=== PATIENT | female | born 1935 | race Caucasian/White ===

== ENCOUNTER 2017-12-17 13:04 | Inpatient (IN) | payer MEDICARE, OTHER ==
[~2017-12-17] VITALS: Ht 152.4 cm; Wt 49.9 kg
[~2017-12-17 13:04] MED LIST: BUDE180A INH; CETI-102 PO; CLON1TAB PO
--- NOTE | 2017-12-17 13:06 | NUR ---
[id number], [id number] FROM HOME FOR UNWITNESSED SYNCOPE. HYPOTENSIVE IN THE FIELD 60/40 IV FLUIDS INITIATED BY EMS. BS-152. RR IS EVEN AND UNLABORED WITH NAD NOTED. SKIN IS WARM AND DRY. AWAITING MD FOR EVAL.
[2017-12-17] MEDS ORDERED: TRAM50TA PO (13:12)
[2017-12-17] MEDS ORDERED: CLON0.5T PO (13:12)
[2017-12-17] MEDS ORDERED: ONDA4TAB5 PO (13:12)
[2017-12-17] MEDS ORDERED: POLY17PO4 PO (13:12)
[2017-12-17] MEDS ORDERED: LEVO5TAB29 PO (13:12)
[2017-12-17] MEDS ORDERED: FLUT100B3 IH (13:12)
[2017-12-17 13:23] LABS: BASOPHILS % (AUTO) 0.7 % (0.0-2.0); EOSINOPHILS % (AUTO) 0.4 % (0.0-6.0); HEMATOCRIT 38 % (33-45); LYMPHOCYTES # (AUTO) 1.6 /CMM (0.8-4.8); LYMPHOCYTES % (AUTO) 24.7 % (20.0-44.0); MEAN CORPUSCULAR HGB CONC 35 g/dl (31.0-36.0); MEAN CORPUSCULAR VOLUME 88 fL (82-100); MONOCYTES # (AUTO) 0.6 /CMM (0.1-1.30); MONOCYTES % (AUTO) 8.9 % (2.0-12.0); NEUTROPHILS # (AUTO) 4.3 /CMM (1.8-8.9); NEUTROPHILS % (AUTO) 65.3 % (43.0-81.0); PLATELET COUNT (AUTO) 232 /CMM (150-450); RDW COEFFICIENT OF VARIATION 13.3 (11.5-15.0); RED BLOOD CELL COUNT(AUTO) 4.31 MIL/uL (4.0-5.2); WHITE BLOOD COUNT (AUTO) 6.5 K/uL (4.3-11.0)
--- NOTE | 2017-12-17 13:29 | NUR ---
CALLED [employer] DICTAPHONE TRANSCRIBER WAS PAGED.
[2017-12-17] MEDS ORDERED: IV NS 0.9% 1,000 ML BAG IV ONE (13:30)
[2017-12-17] MEDS ORDERED: ONDANSETRON HCL/PF 4 MG/2 ML VIAL ONE (13:30)
[2017-12-17] MEDS ORDERED: ONDANSETRON HCL/PF 4 MG/2 ML VIAL IVP ONE (13:30)
[2017-12-17 13:37] LABS: CALCIUM, SERUM 9.3 mg/dL (8.5-10.1); CARBON DIOXIDE 28 mmol/L (21-32); CHLORIDE 101 mmol/L (98-107); CREATININE 0.9 mg/dL (0.6-1.3); GLUCOSE 158 mg/dL (74-106); INR 0.97 (0.85-1.15); POTASSIUM 3.7 mmol/L (3.5-5.1); SODIUM SERUM 135 mmol/L (136-145); UREA NITROGEN, BLOOD 16 mg/dL (7-18)
[2017-12-17 13:41] LABS: TROPONIN I 0.045 ng/mL (0.00-0.056)
[2017-12-17 13:43] LABS: ALANINE AMINOTRANSFERASE 23 U/L (12-78); ALBUMIN 3.6 g/dL (3.4-5.0); ALKALINE PHOSPHATASE 53 U/L (46-116); ASPARTATE AMINOTRANSFERASE 16 U/L (15-37); BILIRUBIN,DIRECT 0.1 mg/dL (0.0-0.2); BILIRUBIN,TOTAL 0.4 mg/dL (0.2-1.0); TOTAL PROTEIN, SERUM 6.3 g/dL (6.4-8.2)
--- NOTE | 2017-12-17 15:18 | NUR ---
REPORT GIVEN TO YISEL ARMENTA FOR YUN TEL [id number]
[2017-12-17 16:00] VITALS: BP 117/62
--- NOTE | 2017-12-17 16:00 | NUR ---
FIRST ASSISTANT NOTES PATIENT ARRIVED ON UNIT VIA GURNEY. ALERT, ORIENTED X3 NO SOB OR ACUTE DISTRESS NOTED. PATIENT DENIES ANY PAIN OR DISCOMFORT. PATIENT ORIENTED TO ROOM AND UNIT. PATIENT IS DEAF. ABLE TO READ LIPS. PERIPHERAL IV INTACT PATENT ON LEFT AC. WILL CONTINUE TO MONITOR.
--- NOTE | 2017-12-17 16:30 | NUR ---
HOSE SPRAYER NOTES PATIENT SEEN AND EVALUATED BY DR. TAVARES ORDERS NOTED AND CARRIED OUT.
[2017-12-17] MEDS ORDERED: IV NS 0.9% 1,000 ML IV PRN (16:44)
[2017-12-17] MEDS: POLYETHYLENE GLYCOL 3350 17 GM POWD.PACK PO SCH (17:00)
[2017-12-17] MEDS ORDERED: TRAMADOL HCL 50 MG TABLET PO SCH (17:00)
[2017-12-17] MEDS ORDERED: HYDROCODONE/APAP 5/325MG 1 EACH TABLET PO PRN (17:00)
[2017-12-17] MEDS ORDERED: FLUTICASONE FUROATE 100 MCG IH SCH (17:00)
[2017-12-17] MEDS ORDERED: Medication Not On Formulary EA (Levocetirizine Dihydrochloride (Xyzal) 5 MG) PO SCH (17:00)
[2017-12-17] MEDS ORDERED: Z GUARD REMEDY 2 OZ OINT TP PRN (17:00)
[2017-12-17] MEDS ORDERED: ONDANSETRON HCL/PF 4 MG/2 ML VIAL IVP PRN (17:00)
[2017-12-17] MEDS ORDERED: MAG HYDROX/AL HYDROX/SIMETH 30 ML UDC PO PRN (17:00)
[2017-12-17] MEDS: clonazePAM 0.5 MG TABLET PO SCH (17:00)
[2017-12-17] MEDS ORDERED: ACETAMINOPHEN 325 MG TABLET PO PRN (17:00)
[2017-12-17] MEDS ORDERED: MAGNESIUM HYDROXIDE 30 ML UDC PO PRN (17:00)
[2017-12-17] MEDS ORDERED: ZOLPIDEM TARTRATE 5 MG TABLET PO PRN (17:00)
[2017-12-17 20:08] VITALS: BP 110/57
--- NOTE | 2017-12-17 20:09 | NUR ---
IT SECURITY ARCHITECT NOTES PATIENT IN BED RESTING NO SOB OR ACUTE DISTRESS NOTED. ALL DUE MEDICATIONS ADMINISTERED. ALL NEEDS MET. WILL ENDORSE TO PM SHIFT YUN.
--- NOTE | 2017-12-17 22:08 | NUR ---
TELE/RN RECEIVED PATIENT AT 1930. PATIENT WAS AWAKE, ALERT, ORIENTED, COMFORTABLE, NO C/O PAIN, NO DISTRESS NOTED, CALL LIGHT IN REACH. PATIENT IS DEAF, NO HEARING AIDS, BUT ABLE TO READ LIPS. WILL MONITOR.
--- NOTE | 2017-12-18 01:35 | NUR ---
TELE/RN PATIENT IS SLEEPING AT THIS TIME, EASILY AROUSABLE, APPEAR COMFORTABLE, NO SIGNS OF DISTRESS NOTED, CALL LIGHT IN REACH. WILL CONTINUE TO MONITOR.
[2017-12-18 01:43] VITALS: BP 150/71
[2017-12-18 01:44] VITALS: BP 150/71
--- NOTE | 2017-12-18 01:59 | NUR ---
TELE/RN IV MACHINE CONSTANTLY BEEPING DUE TO IV SITE AT LEFT AC AND PATIENT IS UNABLE TO KEEP ARM STRAIGHT, OFFERED PATIENT TO CHANGE IV SITE BUT REFUSED. IV MACHINE TURNED OFF IT DISTURBS ROOM MATE WHO WANTS TO SLEEP.
[2017-12-18 02:53] LABS: APPEARANCE,URINE CLEAR (CLEAR); BILIRUBIN,URINE NEGATIVE (NEGATIVE); BLOOD, URINE NEGATIVE Ery/uL (NEGATIVE); COLOR,URINE YELLOW (YELLOW); KETONES,URINE NEGATIVE (NEGATIVE); LEUKOCYTE ESTERASE ,URINE 1+ (NEGATIVE); NITRITE, URINE NEGATIVE (NEGATIVE); PH,URINE 6.5 (5.0-8.0); PROTEIN,URINE NEGATIVE (NEGATIVE); UGLUCOSE NEGATIVE (NEGATIVE); UROBILINOGEN,URINE 0.2 EU/dL (0.2)
[2017-12-18 03:38] LABS: BACTERIA,URINE Many /HPF (None Seen); SQUAMOUS EPITHELIAL CELL,UR Few /HPF (None Seen)
[2017-12-18 04:37] VITALS: BP 136/66
--- NOTE | 2017-12-18 06:15 | NUR ---
TELE/RN PATIENT IS STILL SLEEPING AT THIS TIME, APPEAR COMFORTABLE, BREATHING EVEN AND UNLABORED, ALL NEEDS ATTENDED AT THIS TIME. WILL CONTINUE TO MONITOR.
[2017-12-18 07:23] LABS: BASOPHILS % (AUTO) 0.5 % (0.0-2.0); EOSINOPHILS % (AUTO) 0.9 % (0.0-6.0); HEMATOCRIT 36 % (33-45); HEMOGLOBIN 12.3 g/dL (11.5-14.8); LYMPHOCYTES # (AUTO) 1.3 /CMM (0.8-4.8); LYMPHOCYTES % (AUTO) 23.9 % (20.0-44.0); MEAN CORPUSCULAR HGB CONC 35 g/dl (31.0-36.0); MEAN CORPUSCULAR VOLUME 90 fL (82-100); MONOCYTES # (AUTO) 0.5 /CMM (0.1-1.30); MONOCYTES % (AUTO) 8.7 % (2.0-12.0); NEUTROPHILS # (AUTO) 3.5 /CMM (1.8-8.9); PLATELET COUNT (AUTO) 174 /CMM (150-450); RDW COEFFICIENT OF VARIATION 14.4 (11.5-15.0); RED BLOOD CELL COUNT(AUTO) 3.96 MIL/uL (4.0-5.2); WHITE BLOOD COUNT (AUTO) 5.3 K/uL (4.3-11.0)
--- NOTE | 2017-12-18 07:30 | NUR ---
RN OPENING NOTES RECEIVED PATIENT IN BED RESTING. NO ACUTE DISTRESS, NO SOB. DENIED PAIN OR DISCOMFORT. IV SITE INTACT AND PATENT. KEPT PATIENT SAFE AND COMFORTABLE. BED IN LOW/LOCKED POSITION, SIDERAILS UP X2, CALL LIGHT IN REACH. WILL CONTINUE TO MONITOR ACCORDINGLY.
[2017-12-18 07:42] LABS: ALANINE AMINOTRANSFERASE 25 U/L (12-78); ALBUMIN 3.4 g/dL (3.4-5.0); ALKALINE PHOSPHATASE 55 U/L (46-116); ASPARTATE AMINOTRANSFERASE 18 U/L (15-37); BILIRUBIN,TOTAL 0.4 mg/dL (0.2-1.0); CALCIUM, SERUM 8.5 mg/dL (8.5-10.1); CARBON DIOXIDE 26 mmol/L (21-32); CHLORIDE 104 mmol/L (98-107); CREATININE 0.6 mg/dL (0.6-1.3); GLUCOSE 83 mg/dL (74-106); MAGNESIUM 1.8 mg/dL (1.8-2.4); PHOSPHORUS 3.5 mg/dL (2.5-4.9); POTASSIUM 3.7 mmol/L (3.5-5.1); SODIUM SERUM 137 mmol/L (136-145); TOTAL PROTEIN, SERUM 5.9 g/dL (6.4-8.2); UREA NITROGEN, BLOOD 15 mg/dL (7-18)
[2017-12-18 07:47] LABS: CHOLESTEROL 165 mg/dL (<200); HDL CHOLESTEROL 82 mg/dL (40-60); LDL 76 mg/dL (0-99); TRIGLYCERIDES 33 mg/dL (30-150)
[2017-12-18 08:00] VITALS: BP 135/78
[2017-12-18] MEDS: POLYETHYLENE GLYCOL 3350 17 GM POWD.PACK PO SCH (08:23)
[2017-12-18] MEDS: clonazePAM 0.5 MG TABLET PO SCH (08:23)
[2017-12-18 10:00] VITALS: BP_SYST 135; BP_SYST 143; BP_SYST 144; BP_DIAS 76; BP_DIAS 77; BP_DIAS 97
--- NOTE | 2017-12-18 10:00 | NUR ---
ORTHOSTATIC BP SUPINE: 143/76 SITTIN/97 STANDIN/77
[2017-12-18] MEDS: ONDANSETRON 4 MG TAB.RAPDIS PO PRN ×2 (11:17→16:40)
--- NOTE | 2017-12-18 14:15 | NUR ---
RN NOTES DR TAVARES AT BEDSIDE TALKING TO PATIENT AND . PATIENT WILL BE DISCHARGE TODAY.
--- NOTE | 2017-12-18 17:01 | NUR ---
PALEOLOGY PROFESSOR NOTES DISCHARGED PATIENT IN STABLE CONDITION PICKED UP BY , ACCOMPANIED BY PRIMARY NURSE AT THE LOBBY. DISCHARGE INSTRUCTIONS GIVEN, VERBALIZED UNDERSTANDING. DISCHARGE PAPERWORK AND PRESCRIPTION GIVEN TO . REMOVED IV, APPLIED PRESSURE, NO BLEEDING, NO COMPLICATIONS. REMOVED NAME BAND.
== END 2017-12-18 17:55 | disposition home or self-care (01) | DRG 74 ==
LOC: ER 13:05 → TELE 15:09
PROVIDERS: ADMIT Internal Medicine; ATTEND Internal Medicine
DX: G90.8 Other disorders of autonomic nervous system (principal); N39.0 Urinary tract infection, site not specified; E87.1 Hypo-osmolality and hyponatremia; H91.90 Unspecified hearing loss, unspecified ear; Z85.3 Personal history of malignant neoplasm of breast; Z90.12 Acquired absence of left breast and nipple; Z95.0 Presence of cardiac pacemaker; I10 Essential (primary) hypertension; R79.89 Other specified abnormal findings of blood chemistry
CPT/HCPCS: 36415; 70450-TC; 71045-TC; 80048-TC; 80053-TC; 80061-TC; 80076-TC; 81000-TC; 83735-TC; 84100-TC; 84484-TC; 85025-TC; 85730-TC; 87081-TC; 87086-TC; 87186-TC; 93307-TC; 93880-TC; A4606; J2405; J7030; Q0162; Z7610

== ENCOUNTER 2024-11-25 07:35 | Inpatient (IN) | payer MEDICARE ==
[~2024-11-25] VITALS: Ht 152.4 cm; Wt 40.8 kg
[2024-11-25 04:00] VITALS: BP 93/51; TEMP 97.9; O2SAT 98
[~2024-11-25 07:35] MED LIST changes: -BUDE180A INH; -CETI-102 PO; +CLON0.5T PO; -CLON1TAB PO; +FLUT100B3 IH; +LEVO5TAB29 PO; +ONDA4TAB5 PO; +POLY17PO4 PO; +TRAM50TA PO
[2024-11-25 07:56] LABS: BASOPHILS % (AUTO) 0.2 % (0.0-2.0); EOSINOPHILS % (AUTO) 0.7 % (0.0-6.0); HEMATOCRIT 34 % (33-45); HEMOGLOBIN 11.8 g/dL (11.5-14.8); LYMPHOCYTES # (AUTO) 0.7 K/uL (0.8-4.8); LYMPHOCYTES % (AUTO) 15.9 % (20.0-44.0); MEAN CORPUSCULAR HEMOGLOBIN 30 PG (26.0-33.0); MEAN CORPUSCULAR HGB CONC 35 g/dl (31.0-36.0); MEAN CORPUSCULAR VOLUME 85 fL (82-100); MONOCYTES # (AUTO) 0.3 K/uL (0.1-1.30); MONOCYTES % (AUTO) 7.2 % (2.0-12.0); NEUTROPHILS # (AUTO) 3.5 K/uL (1.8-8.9); PLATELET COUNT (AUTO) 168 K/uL (150-450); RED BLOOD CELL COUNT(AUTO) 3.98 MIL/uL (4.0-5.2); RED CELL DISTRIBUTION WIDTH 14.9 % (11.5-15.0); WHITE BLOOD COUNT (AUTO) 4.6 K/uL (4.3-11.0)
[2024-11-25] MEDS: IV NS 0.9% 500 ML BAG IV ONE (08:01)
[2024-11-25 08:19] LABS: ALANINE AMINOTRANSFERASE 25 U/L (12-78); ALBUMIN 4.3 g/dL (3.4-5.0); ALKALINE PHOSPHATASE 80 U/L (46-116); ASPARTATE AMINOTRANSFERASE 23 U/L (15-37); BILIRUBIN,DIRECT 0.2 mg/dL (0.0-0.2); BILIRUBIN,TOTAL 0.5 mg/dL (0.2-1.0); CALCIUM, SERUM 9.1 mg/dL (8.5-10.1); CARBON DIOXIDE 27 mmol/L (21-32); CHLORIDE 84 mmol/L (98-107); CREATININE 0.9 mg/dL (0.6-1.3); GLUCOSE 116 mg/dL (74-106); POTASSIUM 4.5 mmol/L (3.5-5.1); TOTAL PROTEIN, SERUM 7.3 g/dL (6.4-8.2); UREA NITROGEN, BLOOD 23 mg/dL (7-18)
[2024-11-25 08:21] LABS: LACTIC ACID 0.6 mmol/L (0.4-2.0)
[2024-11-25 08:26] LABS: SODIUM SERUM 117 mmol/L (136-145)
[2024-11-25] MEDS ORDERED: AMLO2.5T4 PO (09:14)
[2024-11-25] MEDS ORDERED: CLON2TAB11 PO (09:14)
[2024-11-25] MEDS ORDERED: ACET-73 PO (09:14)
[2024-11-25] MEDS ORDERED: BACL10TA PO (09:14)
[2024-11-25] MEDS ORDERED: SILO8CAP6 PO (09:14)
[2024-11-25] MEDS ORDERED: PROP15DR EACHEYE (09:14)
[2024-11-25] MEDS ORDERED: SPIR1TAB4 PO (09:14)
[2024-11-25] MEDS ORDERED: MTH/1CAP7 PO (09:14)
[2024-11-25] MEDS ORDERED: LISI40TA13 PO (09:14)
[2024-11-25] MEDS ORDERED: Z GUARD REMEDY 4 OZ OINT TP PRN (10:00)
[2024-11-25] MEDS ORDERED: ONDANSETRON HCL/PF 4 MG/2 ML VIAL IVP PRN (10:00)
[2024-11-25] MEDS ORDERED: ACETAMINOPHEN 325 MG TABLET PO PRN (10:00)
[2024-11-25] MEDS ORDERED: MAGNESIUM HYDROXIDE 30 ML UDC PO PRN (10:00)
[2024-11-25] MEDS ORDERED: BACLOFEN (10 MG) 10 MG TABLET PO PRN (10:00)
[2024-11-25] MEDS ORDERED: MAG HYDROX/AL HYDROX/SIMETH 30 ML UDC PO PRN (10:00)
[2024-11-25] MEDS ORDERED: URIBEL XX SCH (10:00)
[2024-11-25 10:12] LABS: APPEARANCE,URINE CLEAR (CLEAR); BILIRUBIN,URINE NEGATIVE (NEGATIVE); BLOOD, URINE NEGATIVE Ery/uL (NEGATIVE); COLOR,URINE YELLOW (YELLOW); PROTEIN,URINE NEGATIVE (NEGATIVE); UGLUCOSE NEGATIVE (NEGATIVE)
[2024-11-25 10:13] LABS: KETONES,URINE NEGATIVE (NEGATIVE); LEUKOCYTE ESTERASE ,URINE NEGATIVE (NEGATIVE); NITRITE, URINE NEGATIVE (NEGATIVE); UROBILINOGEN,URINE 0.2 EU/dL (0.2)
[2024-11-25] MEDS: ASPIRIN 81 MG TAB.CHEW PO SCH (10:30)
[2024-11-25] MEDS: IV NS 0.9% 1,000 ML IV PRN (11:50)
[2024-11-25] MEDS: CEFTRIAXONE 1 G in IV D5W 50 ML IV SCH (11:50)
[2024-11-25 15:22] LABS: CALCIUM, SERUM 9.1 mg/dL (8.5-10.1); CREATININE 0.7 mg/dL (0.6-1.3); MAGNESIUM 2.1 mg/dL (1.8-2.4); POTASSIUM 4.7 mmol/L (3.5-5.1)
[2024-11-25 15:55] LABS: THYROID STIMULATING HORMONE 1.79 uIU/mL (0.358-3.74)
[2024-11-25 16:00] VITALS: BP 120/61; TEMP 98.2; O2SAT 98
[2024-11-25 20:00] VITALS: BP 125/64; TEMP 98; O2SAT 97
[2024-11-25] MEDS: clonazePAM 1 MG TABLET PO SCH (22:52)
[2024-11-25] MEDS: TRAMADOL HCL 50 MG TABLET PO SCH (22:55)
[2024-11-26] MEDS: BUDESONIDE RESPULE INH 0.5 MG/2 ML AMPUL.NEB HHN SCH (07:05)
[2024-11-26 07:22] LABS: BASOPHILS % (AUTO) 0.2 % (0.0-2.0); EOSINOPHILS # (AUTO) 0.1 K/uL (0.0-0.7); HEMATOCRIT 34 % (33-45); HEMOGLOBIN 11.6 g/dL (11.5-14.8); LYMPHOCYTES # (AUTO) 0.8 K/uL (0.8-4.8); MEAN CORPUSCULAR HEMOGLOBIN 30 PG (26.0-33.0); MEAN CORPUSCULAR HGB CONC 35 g/dl (31.0-36.0); MEAN CORPUSCULAR VOLUME 87 fL (82-100); MONOCYTES # (AUTO) 0.5 K/uL (0.1-1.30); MONOCYTES % (AUTO) 7.1 % (2.0-12.0); NEUTROPHILS # (AUTO) 5.5 K/uL (1.8-8.9); NEUTROPHILS % (AUTO) 79.7 % (43.0-81.0); PLATELET COUNT (AUTO) 172 K/uL (150-450); RED BLOOD CELL COUNT(AUTO) 3.85 MIL/uL (4.0-5.2); RED CELL DISTRIBUTION WIDTH 14.9 % (11.5-15.0); WHITE BLOOD COUNT (AUTO) 6.9 K/uL (4.3-11.0)
[2024-11-26 07:30] VITALS: BP 101/52; TEMP 98.2; O2SAT 100
[2024-11-26 07:52] VITALS: BP 101/52; TEMP 98.2; O2SAT 100
[2024-11-26 08:17] LABS: CALCIUM, SERUM 8.6 mg/dL (8.5-10.1); CREATININE 0.7 mg/dL (0.6-1.3); MAGNESIUM 2.3 mg/dL (1.8-2.4); PHOSPHORUS 3.9 mg/dL (2.5-4.9); POTASSIUM 4.5 mmol/L (3.5-5.1)
[2024-11-26] MEDS: AMLODIPINE BESYLATE 2.5 MG TABLET PO SCH (09:00)
[2024-11-26] MEDS: POLYVINYL ALCOHOL 15 ML BOTTLE OP SCH (09:00)
[2024-11-26] MEDS: PANTOPRAZOLE 40 MG TABLET.DR PO SCH (09:28)
[2024-11-26 10:07] LABS: FOLIC ACID > 20.0 ng/mL (>3.0)
[2024-11-26] MEDS ORDERED: BACLOFEN 10 MG PO PRN (10:30)
[2024-11-26 12:00] VITALS: BP 107/59; TEMP 97.9; O2SAT 97
[2024-11-26] MEDS: FLUTICASONE FUROATE 100 MCG PO SCH (13:05)
[2024-11-26] MEDS ORDERED: HOME MED MISCELLANEOUS PO SCH (13:30)
[2024-11-26] MEDS: TYLENOL 500 MG PO SCH (14:01)
[2024-11-26] MEDS: KEY,NONCONTROL,TO KEEP IN PYXI 1 EA MC ONE ×2 (14:08→21:10)
[2024-11-26 16:00] VITALS: BP 124/56; TEMP 97.5; O2SAT 100
[2024-11-26] MEDS: HOME MED MISCELLANEOUS (SILODOSIN 8MG CAP) PO SCH (17:40)
[2024-11-26] MEDS: ONDANSETRON 4 MG PO PRN (17:42)
[2024-11-26 20:00] VITALS: BP 110/59; TEMP 97.3; O2SAT 96
[2024-11-26] MEDS: TRAMADOL 50 MG PO SCH (21:13)
[2024-11-26] MEDS: CLONAZEPAM 1 MG PO SCH (21:14)
[2024-11-27 04:00] VITALS: BP 110/61; TEMP 97.7; O2SAT 95
[2024-11-27 06:36] LABS: CALCIUM, SERUM 7.6 mg/dL (8.5-10.1); CREATININE 0.5 mg/dL (0.6-1.3); POTASSIUM 4.2 mmol/L (3.5-5.1)
[2024-11-27 08:00] VITALS: BP 128/63; TEMP 97.3; O2SAT 99
[2024-11-27 12:00] VITALS: BP 122/61; TEMP 98.2; O2SAT 97
[2024-11-27] MEDS: KEY,NONCONTROL,TO KEEP IN PYXI 1 EA MC ONE (12:54)
[2024-11-29 07:06] LABS: METHYLMALONIC ACID 158 nmol/L (0-378)
[2024-12-01 04:07] LABS: VITAMIN B1 THIAMINE,WB 99.2 nmol/L (66.5-200.0)
== END 2024-11-27 17:11 | disposition home health service (06) | DRG 640 ==
LOC: ER 07:39 → MED 09:11 → TELE 10:16
PROVIDERS: ADMIT Nurse Practitioner Acute Care; ATTEND Nurse Practitioner Acute Care
DX: E87.1 Hypo-osmolality and hyponatremia (principal); I21.A1 Myocardial infarction type 2; N39.0 Urinary tract infection, site not specified; E86.0 Dehydration; F41.9 Anxiety disorder, unspecified; I10 Essential (primary) hypertension; Z90.12 Acquired absence of left breast and nipple; Z95.0 Presence of cardiac pacemaker; Z87.440 Personal history of urinary (tract) infections; R53.1 Weakness; H91.13 Presbycusis, bilateral; T50.2X5A Adverse effect of carbonic-anhydrase inhibitors, benzothiadiazides and other diuretics, initial encounter; Y92.009 Unspecified place in unspecified non-institutional (private) residence as the place of occurrence of the external cause; B96.89 Other specified bacterial agents as the cause of diseases classified elsewhere; Z85.3 Personal history of malignant neoplasm of breast
CPT/HCPCS: 36415; 70450-TC; 71045-TC; 80048-TC; 80061-TC; 80076-TC; 82533; 82607-TC; 82962-TC; 83605-TC; 83735-TC; 83921; 83935-TC; 84100-TC; 84300-TC; 84425; 84443-TC; 84484-TC; 84550-TC; 85025-TC; 87040-TC; 93307-TC; 97110-TC; 97116-TC; 97530-TC; 97535-TC; A4223; G0378; J0696; J7030; J7040; J7060

== ENCOUNTER 2024-12-02 12:29 | Emergency (ER) | payer MEDICARE ==
[~2024-12-02] VITALS: Ht 144.8 cm; Wt 42.6 kg
[~2024-12-02 12:29] MED LIST changes: +ACET-73 PO; +AMLO2.5T4 PO; +BACL10TA PO; +CLON2TAB11 PO; +LISI40TA13 PO; +MTH/1CAP7 PO; +PROP15DR EACHEYE; +SILO8CAP6 PO; +SPIR1TAB4 PO
[2024-12-02 12:45] VITALS: BP 114/56; TEMP 98.1; O2SAT 97
[2024-12-02] MEDS ORDERED: AZIT250T13 PO (13:19)
[2024-12-02] MEDS ORDERED: CARB15DR12 RIGHT EAR (13:19)
[2024-12-02] MEDS ORDERED: NEOM10DR11 EACH EAR (13:19)
== END 2024-12-02 13:28 | disposition home or self-care (01) ==
LOC: ER 12:31
DX: H61.21 Impacted cerumen, right ear (principal); H66.92 Otitis media, unspecified, left ear; I10 Essential (primary) hypertension; J42 Unspecified chronic bronchitis; Z79.899 Other long term (current) drug therapy; Z85.3 Personal history of malignant neoplasm of breast; Z88.0 Allergy status to penicillin; Z88.1 Allergy status to other antibiotic agents; Z88.5 Allergy status to narcotic agent

== ENCOUNTER 2024-12-15 21:22 | Emergency (ER) | payer MEDICARE ==
[~2024-12-15] VITALS: Ht 152.4 cm; Wt 43.5 kg
[~2024-12-15 21:22] MED LIST changes: +AZIT250T13 PO; +CARB15DR12 RIGHT EAR; -CLON0.5T PO; -LEVO5TAB29 PO; +NEOM10DR11 EACH EAR; -POLY17PO4 PO; -SPIR1TAB4 PO
[2024-12-15 21:47] VITALS: BP 136/77; TEMP 98; O2SAT 96
[2024-12-15 22:08] LABS: BASOPHILS % (AUTO) 0.5 % (0.0-2.0); EOSINOPHILS % (AUTO) 0.6 % (0.0-6.0); HEMATOCRIT 35 % (33-45); HEMOGLOBIN 11.6 g/dL (11.5-14.8); LYMPHOCYTES # (AUTO) 0.7 K/uL (0.8-4.8); LYMPHOCYTES % (AUTO) 9.2 % (20.0-44.0); MEAN CORPUSCULAR HEMOGLOBIN 29 PG (26.0-33.0); MEAN CORPUSCULAR HGB CONC 34 g/dl (31.0-36.0); MEAN CORPUSCULAR VOLUME 88 fL (82-100); MONOCYTES # (AUTO) 0.6 K/uL (0.1-1.30); MONOCYTES % (AUTO) 7.9 % (2.0-12.0); NEUTROPHILS % (AUTO) 81.8 % (43.0-81.0); PLATELET COUNT (AUTO) 237 K/uL (150-450); RED BLOOD CELL COUNT(AUTO) 3.96 MIL/uL (4.0-5.2); RED CELL DISTRIBUTION WIDTH 15.7 % (11.5-15.0); WHITE BLOOD COUNT (AUTO) 7.3 K/uL (4.3-11.0)
[2024-12-15 22:17] LABS: CALCIUM, SERUM 8.8 mg/dL (8.5-10.1); POTASSIUM 3.9 mmol/L (3.5-5.1)
[2024-12-15 22:23] LABS: BILIRUBIN,DIRECT 0.1 mg/dL (0.0-0.2); BILIRUBIN,TOTAL 0.4 mg/dL (0.2-1.0)
[2024-12-15] MEDS: IV NS 0.9% 500 ML BAG IV ONE (22:30)
[2024-12-15] MEDS: PEG 3350/NA SULF,BICARB,CL/KCL 4,000 ML BOTTLE PO ONE (23:30)
[2024-12-15] MEDS ORDERED: ACETAMINOPHEN ES 500 MG TABLET ONE (23:37)
[2024-12-15] MEDS: ACETAMINOPHEN ES 500 MG TABLET PO ONE (23:40)
[2024-12-16] MEDS ORDERED: PEG 3350/NA SULF,BICARB,CL/KCL 4,000 ML BOTTLE ONE (00:49)
[2024-12-16 00:59] LABS: BILIRUBIN,URINE NEGATIVE (NEGATIVE); BLOOD, URINE NEGATIVE Ery/uL (NEGATIVE); KETONES,URINE NEGATIVE (NEGATIVE); LEUKOCYTE ESTERASE ,URINE NEGATIVE (NEGATIVE); NITRITE, URINE NEGATIVE (NEGATIVE); PROTEIN,URINE NEGATIVE (NEGATIVE); UGLUCOSE NEGATIVE (NEGATIVE); UROBILINOGEN,URINE 0.2 EU/dL (0.2)
[2024-12-16 01:01] LABS: APPEARANCE,URINE CLEAR (CLEAR); COLOR,URINE YELLOW (YELLOW)
== END 2024-12-16 01:37 | disposition left against medical advice (07) ==
LOC: ER 21:26
DX: K59.00 Constipation, unspecified (principal); R10.10 Upper abdominal pain, unspecified; I10 Essential (primary) hypertension; J42 Unspecified chronic bronchitis; Z79.899 Other long term (current) drug therapy; Z85.3 Personal history of malignant neoplasm of breast; Z88.0 Allergy status to penicillin; Z88.1 Allergy status to other antibiotic agents; Z88.5 Allergy status to narcotic agent
CPT/HCPCS: 99285; 74176; 71045; 93005; 85025; 80048; 83690; 80076; 81003; 36415; J7040